=== PATIENT | female | born 1945 | race African-American/Black ===

== ENCOUNTER 2017-09-03 11:35 | Emergency (ER) | payer BC, OTHER ==
--- NOTE | 2017-09-03 11:37 | PDOC ---
History of Present Illness - General Chief Complaint: Pain Stated Complaint: "I HAVE PAIN TO MY LEFT SIDE" Time Seen by Provider: 09/03/17 11:37 History Source: Patient Exam Limitations: No Limitations - History of Present Illness Initial Comments: 09/03/17 12:15 Mrs. Todd is a 71-year-old female with a history rheumatoid arthritis, CLL, spinal stenosis, history of stroke in August 2016. She presents emergency department from the [facility] urgent care due to left side pain. Patient states her symptoms began exactly 1 week ago. She is currently doing physical therapy for her spinal stenosis. On Tuesday she was at the rehabilitation facility doing stairs for her agility. She fell while doing this. Patient states she awoke on Tuesday morning with left side pain. Pain was initially bearable, not severe. Pain has been consistent throughout the past week. She's noticed her pain is worsened. On account of the worsening pain, she was seen by her primary care physician on Tuesday (disease 3 days prior to arrival to the ER) disease. He gave her muscle relaxant, Toradol warm and cold compresses. Patient states she's been compliant with his instructions however notes her pain has worsened. Apparently she also had a urinalysis which showed microscopic hematuria versus a urinary tract infection, and was started on Bactrim. She denies fevers or chills. Because her pain has been persistent, she went back to the urgent care. They were concerned about possible kidney stone, and therefore sent her to the emergency department. Patient denies fevers or chills (disease although while at the urgent care, her temperature was noted to be 99.9) disease. Patient denies nausea, vomiting, diarrhea. Pain is located on the left side of the body. It is not elicited with palpation, she rates the pain 27/10. Pain is located throughout the left side, no specific areas that it radiates 2. Pain is worse with movement, ambulation, therefore when this patient was examined her pain was not severe. Patient is not elicited with palpation of the flank or the left side of the abdomen. PMH: Rheumatoid arthritis, CLL, spinal stenosis, prior CVA PSH: Medications: Please see MAR ALLERGIES: Codeine, erythromycin, meloxicam, naproxen. Social: patient denies IV drug use, alcohol abuse GENERAL/CONSTITUTIONAL: No: fever, chills, weakness, loss of appetite. HEAD, EYES, EARS, NOSE AND THROAT: No: change in vision, ear pain, discharge, sore throat, throat swelling. CARDIOVASCULAR: No: chest pain, lightheadedness, palpitations, syncope RESPIRATORY: No: cough, shortness of breath, wheezing, hemoptysis, stridor. GASTROINTESTINAL: No: nausea, vomiting, diarrhea, abdominal pain GENITOURINARY: No: dysuria, hematuria, frequency, urgency, flank pain. MUSCULOSKELETAL: YEs: back pain No: neck pain, joint pain, muscle swelling or pain SKIN AND BREASTS: No: lesions, pallor, rash or easy bruising. NEUROLOGIC: No: headache, vertigo, paresthesias, weakness ENDOCRINE: No: unexplained weight gain or loss HEMATOLOGIC/LYMPHATIC: No: anemia, easy bleeding, swelling nodes. GENERAL: The patient is in no acute distress. HEAD: Normal with no signs of trauma. EYES: PERRLA, EOMI, sclera anicteric, conjunctiva clear. ENT: Ears normal, nares patent, oropharynx clear without exudates. Moist mucous membranes. NECK: Normal range of motion, supple without lymphadenopathy, JVD, or masses. LUNGS: Breath sounds equal, clear to auscultation bilaterally. No wheezes, and no crackles. HEART:Regular rate and rhythm, normal S1 and S2 without murmur, rub or gallop. ABDOMEN: Soft, nontender, normoactive bowel sounds. No guarding, no rebound. EXTREMITIES: Normal range of motion, no edema. No clubbing or cyanosis. No erythema, or tenderness. NEUROLOGICAL: Cranial nerves II through XII grossly intact. Normal speech. No focal neurological deficits. MUSCULOSKELETAL: Back non-tender to palpation, no CVA tenderness SKIN: Warm, Dry, normal turgor, no rashes or lesions noted. Past History - Past Medical History Allergies/Adverse Reactions: Allergies Allergy/AdvReac Type Severity Reaction Status Date / Time codeine Allergy Verified 09/03/17 11:39 duloxetine Allergy EDEMA Verified 09/03/17 11:39 erythromycin base Allergy Swelling Verified 09/03/17 11:39 meloxicam Allergy SOB Verified 09/03/17 11:39 naproxen [From Aleve] Allergy SOB Verified 09/03/17 11:39 Sulfa (Sulfonamide Allergy Verified 09/03/17 11:39 Antibiotics) tramadol Allergy Verified 09/03/17 11:39 Home Medications: Ambulatory Orders Acetaminophen [Tylenol -] 500 mg PO BID 09/03/17 Albuterol Sulfate Inhaler - [Ventolin Hfa Inhaler -] 2 inh PO Q6H 09/03/17 Aspirin [Aspirin EC] 81 mg PO DAILY 09/03/17 Atorvastatin Ca [Lipitor] 10 mg PO HS 09/03/17 Beclomethasone Dipropionate [Qvar] 2 sprays IH BID 09/03/17 Cyclopentolate 1% Eye Drops [Cyclogyl 1% Eye Drops -] 1 drop OS DAILY 09/03/17 Diclofenac Sodium 1 applic TP QID 09/03/17 Ibrutinib [Imbruvica] 280 mg PO DAILY 09/03/17 Ibuprofen [Motrin -] 400 mg PO Q6H 09/03/17 Lidocaine 5% Patch [Lidoderm Patch -] 1 patch TP DAILY PRN #30 patch 09/03/17 Lisinopril 5 mg PO DAILY 09/03/17 Metformin HCl 500 mg PO BID 09/03/17 Nitrofurantoin Monohyd/M-Cryst [Macrobid -] 100 mg PO BID 09/03/17 Pilocarpine HCl [Isopto Carpine] 1 drop OU DAILY 09/03/17 Prednisolone 1% Ophthalmic [Pred Forte 1% -] 1 drop OP ASDIR 09/03/17 Sulfasalazine 1,000 mg PO BID 09/03/17 Timolol 0.5% [Timoptic 0.5%] 1 drop OU BID 09/03/17 Timolol Maleate 0.5% Gfs [Timoptic Xe 0.5%] 1 drop OU DAILY 09/03/17 Tizanidine HCl 4 mg PO Q8H PRN 09/03/17 ED Treatment Course - LABORATORY CBC & Chemistry Diagram: 09/03/17 12:18 09/03/17 12:00 Medical Decision Making - Medical Decision Making 09/03/17 12:21 71 yo F presenting to the ER with left side pain No trauma Present for 1 week and worsening low grade fever prior to arrival to the ER (concerning as pt is on Prednisone for RA) Different diagnosis is broad and includes: Spinal stenosis, muscle swelling or pain, pyelonephritis, kidney stone. 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 spinal stenosis, initial presentation Clinical Impression: musculoskeletal pain, initial presentation *DC/Admit/Observation/Transfer Diagnosis at time of Disposition: Musculoskeletal pain - Discharge Dispostion Disposition: HOME Condition at time of disposition: Stable Admit: No - Prescriptions Prescriptions: Lidocaine 5% Patch [Lidoderm Patch -] 1 patch TP DAILY PRN #30 patch PRN Reason: Pain - Referrals - Patient Instructions Printed Discharge Instructions: DI for Musculoskeletal Pain Additional Instructions: Thank you for coming in to the ER Try using the lidoderm patches Continue the muscle relaxants as prescribed by your pMD Follow up in his office in 2 days Return to the ER for any other concerns or complaints - Post Discharge Activity
[2017-09-03] MEDS ORDERED: ACETAMINOPHEN 1000 MG/100 ML VIAL (NON FORMULARY) IVPB ONE (11:47)
[2017-09-03] MEDS ORDERED: SODIUM CHLORIDE 1,000 ML IV STA (11:47)
[2017-09-03 11:56] VITALS: BP 156/73; PULSE 73; TEMP 98.8; BMI 34.5
[2017-09-03] MEDS ORDERED: ACETAMINOPHEN INJECTION 100 ML IVPB ONE (12:07)
[2017-09-03 12:20] LABS: MCH 28.3 pg (25.7-33.7)
[2017-09-03 12:23] LABS: HEMATOCRIT 42.3 % (32.4-45.2); HEMOGLOBIN 13.9 GM/dl (10.7-15.3); MCHC 32.9 g/dl (32.0-36.0); MEAN CELL VOLUME 86.1 fl (80-96); MEAN PLT VOLUME 8.1 fl (7.5-11.1); PLATELET COUNT 278 K/MM3 (134-434); RBC 4.92 M/mm3 (3.60-5.2); RDW 14.1 % (11.6-15.6); WHITE BLOOD COUNT 8.4 K/mm3 (4.0-10.8)
[2017-09-03 12:28] LABS: ADD RBC MORPHOLOGY YES
[2017-09-03 12:38] LABS: URINE APPEARANCE Clear; URINE BILIRUBIN Negative (NEGATIVE); URINE GLUCOSE (UA) Negative (NEGATIVE); URINE KETONE Negative (NEGATIVE); URINE NITRITE Negative (NEGATIVE); URINE PROTEIN Negative (NEGATIVE); URINE UROBILINOGEN 0.2 (0.2-1.0)
[2017-09-03 12:39] LABS: URINE BLOOD Trace-lysed (NEGATIVE); URINE COLOR AMBER; URINE LEUK ESTERASE TRACE (NEGATIVE)
[2017-09-03 12:42] LABS: ALBUMIN 3.9 g/dl (3.5-5.0); ALK PHOS 71 U/L (32-92); ANION GAP 3 (8-16); BILIRUBIN,TOTAL 0.8 mg/dl (0.2-1.0); BLOOD UREA NITROGEN 11 mg/dl (7-18); CALCIUM 9.2 mg/dl (8.4-10.2); CHLORIDE 106 mmol/L (98-107); CO2 26 mmol/L (22-28); CREATININE 0.6 mg/dl (0.6-1.3); GLUCOSE,RANDOM 110 mg/dl (74-106); POTASSIUM 3.8 mmol/L (3.5-5.1); SGOT/AST 18 U/L (10-42); SGPT/ALT 16 U/L (10-40); SODIUM 135 mmol/L (136-145); TOT PROT 6.1 g/dl (6.4-8.3)
[2017-09-03 13:11] LABS: EPI CELLS FEW /HPF
[2017-09-03 13:49] LABS: PLATELET ESTIMATE ADEQUATE
== END 2017-09-03 14:00 | disposition home or self-care (01) ==
LOC: FER 11:35
PROC: 3E033NZ Introduction of Analgesics, Hypnotics, Sedatives into Peripheral Vein, Percutaneous Approach (ICD-10-PCS; principal; 2017-09-03)
PROC: 3E0337Z Introduction of Electrolytic and Water Balance Substance into Peripheral Vein, Percutaneous Approach (ICD-10-PCS; 2017-09-03)
DX: M79.1 Myalgia (principal); M06.9 Rheumatoid arthritis, unspecified; C91.10 Chronic lymphocytic leukemia of B-cell type not having achieved remission; Z86.73 Personal history of transient ischemic attack (TIA), and cerebral infarction without residual deficits
CPT/HCPCS: 36415; 74176-TC; 80053; 81003; 81015; 85025; 87086; 99285-25; J0131; J7030

== ENCOUNTER 2020-06-19 12:10 | Emergency (ER) | payer OTHER, BC ==
[2020-06-19 12:23] VITALS: BP 147/72; PULSE 71; TEMP 99; BMI 35.4
[2020-06-19] MEDS ORDERED: diphenhydrAMINE HCL 25 MG CAPSULE (FP) PO ONE ×2 (12:52→12:57)
[2020-06-19] MEDS ORDERED: predniSONE 20 MG TABLET (UD) PO ONE (12:52)
[2020-06-19] MEDS ORDERED: predniSONE 20 MG TABLET (UD) ONE (12:57)
== END 2020-06-19 13:30 | disposition home or self-care (01) ==
LOC: FER 12:10
DX: K14.8 Other diseases of tongue (principal)
CPT/HCPCS: 99283-25